=== PATIENT | female | born 1995 | race African-American/Black ===

== ENCOUNTER 2023-08-22 08:04 | Emergency (ER) | payer OTHER, SELFPAY ==
[2023-08-22 08:07] VITALS: BP 115/79; PULSE 100; RESP 16; TEMP 37.1; O2SAT 96; BMI 23.3
--- NOTE | 2023-08-22 08:08 | ED_ITS ---
HPI - Extremity Injury (Lower) General Time Seen by Provider: 08:08 Date Seen: 08/22/23 Chief Complaint: Extremity Pain/Injury, Lower Stated Complaint: LT knee swelling pain Time Seen by Provider: 08/22/23 08:08 Source: patient, RN notes reviewed and old records reviewed Mode of arrival: ambulatory Limitations: no limitations History of Present Illness HPI Narrative: 27-year-old female who presents today with left leg pain. Patient reports left leg pain behind the knee and some swelling in the calf. Denies injury. Has not taken anything for this, noted this morning. Patient is here from [place]. Denies chest pain or shortness of breath. Related Data Home Medications ?Medication ?Instructions ?Recorded ?Confirmed No Known Home Medications 08/22/23 08/22/23 Allergies Allergy/AdvReac Type Severity Reaction Status Date / Time No Known Drug Allergies Allergy Verified 08/22/23 08:16 [facility] Social History Smoking Status: Never smoker Do you use any of these nicotine containing products: None How often do you have a drink containing alcohol: monthly or less AUDIT-C Alcohol total score: 1 Non-prescribed substance use: denies use Exam Narrative: Exam Narrative: General: well nourished , NAD Head: Atraumatic and normocephalic ENT: External ears and external nose are normal Eyes: Conjunctiva clear, pupils are equal reactive, external ocular motions are intact Neck: Full spontaneous range of motion of the neck Lungs: No respiratory distress Musculoskeletal: Left popliteal tenderness and mild swelling of the left calf, tenderness of left medial distal thigh Neurologic: No gross focal neurologic deficits Skin: No rashes Psych: Mood and affect are appropriate Const: Vital Signs, click to edit/add: Vital Signs - 24 hr 08/22/23 08:07 Temperature 98.8 F Pulse Rate [Pulse Oximeter] 100 Respiratory Rate 16 Blood Pressure [Ri ght Upper Arm] 115/79 Pulse Oximetry 96 Oxygen Delivery Me thod Room Air Course Course ED Course: Patient seen and examined, prior records are reviewed. Patient presents today with left leg pain, no history of trauma, no joint tenderness and no joint effusion to suggest septic arthritis or crystal arthropathy. Patient does have tenderness of the popliteal area and proximal calf, reports also some tenderness of the medial distal thigh. Concern for possible DVT, York cyst. Ultrasound is ordered. Reevaluation(s) Time of Reevaluation #1: 09:06 Reevaluation #1: Radiology interpretation ultrasound review does not demonstrate acute DVT. Vital Signs Vital signs: Initial Vital Signs Temperature 98.8 F 08/22/23 08:07 Temperature Source Temporal Artery Scan 08/22/23 08:07 Pulse Rate 100 08/22/23 08:07 Respiratory Rate 16 08/22/23 08:07 Blood Pressure 115/79 08/22/23 08:07 Blood Pressure Mean 91 08/22/23 08:07 Blood Pressure Position Sitting 08/22/23 08:07 Pulse Oximetry 96 08/22/23 08:07 Oxygen Delivery Method Room Air 08/22/23 08:07 Vital Signs Temperature 98.8 F 08/22/23 08:07 Pulse Rate 100 08/22/23 08:07 Respiratory Rate 16 08/22/23 08:07 Blood Pressure 115/79 08/22/23 08:07 Pulse Oximetry 96 08/22/23 08:07 Oxygen Delivery Method Room Air 08/22/23 08:07 Temperature 98.8 F 08/22/23 08:07 Pulse Rate 100 08/22/23 08:07 Respiratory Rate 16 08/22/23 08:07 Blood Pressure 115/79 08/22/23 08:07 Pulse Oximetry 96 08/22/23 08:07 Oxygen Delivery Method Room Air 08/22/23 08:07 Discharge Plan Discharge Clinical Impression: Hamstring tendinitis of left thigh Patient Disposition: Home, Self-Care Condition: Stable Instructions: Tendinitis (ED) Additional Instructions: Crutches for weight-bearing as tolerated Ice 15-20 minutes at a time every 2-3 hours while awake today and tomorrow Tylenol ibuprofen as needed for pain Follow-up with orthopedics for consideration for physical therapy Activity Level: Weight Bearing as Tolerated and Use Crutches Prescriptions: No Action No Known Home Medications Follow Up/Referrals: Provider,Not a Local [Primary Care Provider] - Stand Alone Forms: MyHealth Info Instructions
--- NOTE | 2023-08-22 08:23 | CRLHL7_ITS ---
For Patients: As a result of the Century Cures Act, medical imaging exams and procedure reports are released immediately into your electronic medical record. You may view this report before your referring provider. If you have questions, please contact your health care provider. INDICATION: Swelling, pain. TECHNIQUE: Ultrasound venous duplex lower left extremity. Compression venous exam was performed using garcia-scale, color Doppler, and spectral Doppler analysis. COMPARISON: None available. FINDINGS: Deep veins: Sonographic imaging demonstrates the left common femoral, deep femoral, superficial femoral, popliteal, posterior tibial, peroneal and the contralateral right common femoral veins to be fully compressible with normal color Doppler blood flow. Superficial veins: Visualized portions of the greater saphenous vein are fully compressible. IMPRESSION: Normal left lower extremity venous ultrasound, no sign of deep venous thrombosis. Dictated by Molly Wick MD @ 08/22/2023 9:04:17 AM (Electronically Signed)
== END 2023-08-22 09:22 | disposition home or self-care (01) ==
PROVIDERS: Emergency Provider Family Medicine
DX: S76.312A Strain of muscle, fascia and tendon of the posterior muscle group at thigh level, left thigh, initial encounter (principal)
CPT/HCPCS: 93971; 99283; 99284